=== PATIENT | male | born 1985 | race Two or more races ===

== ENCOUNTER 2020-06-02 12:04 | Inpatient (IN) | payer BC, OTHER ==
[~2020-06-02] VITALS: Ht 185.4 cm; Wt 136.0 kg
[2020-06-02] MEDS ORDERED: IBUPROFEN 600 MG TABLET ONE (12:42)
--- NOTE | 2020-06-02 12:56 | NUR ---
PT C/O BLE SWELLING AND DRAINAGE X2 DAYS. HX EXCEMA AND FLUID RETENTION. PT CONNECTED TO MONITORING. PIV PLACED, LABS AND 1 SET BLOOD CX COLLECTED AND SENT TO LAB WITH LAB SLIP. SENIOR SYSTEMS PROGRAMMER AT BEDSIDE FOR SECON SET BLOOD CX. IVF RUNNING, DIRECTOR WORKERS COMPENSATION PER APR. PT POSITIONED FOR COMFORT. CALL LIGHT IN REACH.
[2020-06-02] MEDS ORDERED: SODIUM CHLORIDE FLUSH 10ML SYR IVF ONE (13:00)
[2020-06-02] MEDS ORDERED: SODIUM CHLORIDE 0.9% 1,000ML IVBOLUS ONE ×2 (13:00→14:30)
[2020-06-02] MEDS ORDERED: IBUPROFEN 600 MG TABLET PO ONE (13:00)
[2020-06-02 13:08] LABS: BASOPHILS % (AUTO) 0 % (0-1); EOSINOPHILS % (AUTO) 3 % (1-7); LYMPHOCYTES % (AUTO) 7 % (22-44); MEAN CORPUSCULAR HEMOGLOBIN 29.3 pg (27.5-34.5); MEAN CORPUSCULAR HGB CONC 33.5 g/dL (33.2-36.2); MEAN PLATELET VOLUME 9.1 fL (7.4-10.4); MONOCYTES % (AUTO) 11 % (2-9); NEUTROPHILS % (AUTO) 79 % (42-75); PLATELET COUNT 244 x10^3/uL (130-400); RED BLOOD COUNT 4.93 x10^6/uL (4.38-5.82); RED CELL DISTRIBUTION WIDTH 13.7 % (9.4-14.8)
[2020-06-02 13:13] LABS: ALBUMIN 3.3 g/dL (3.4-5.0); ANION GAP 7 mmol/L (5-15); CALCIUM 8.7 mg/dL (8.5-10.1); CHLORIDE 100 mmol/L (98-107); CREATININE 1.32 mg/dL (0.7-1.3)
[2020-06-02 13:32] LABS: MD SCAN
[2020-06-02] MEDS ORDERED: PIPERACILLIN/TAZO/PMX 3.375GM 50 ML ONE (13:43)
[2020-06-02] MEDS ORDERED: LOSA100T14 PO (13:49)
[2020-06-02] MEDS ORDERED: FURO40TA6 PO (13:49)
[2020-06-02] MEDS ORDERED: CETI10TA76 PO (13:50)
--- NOTE | 2020-06-02 13:56 | NUR ---
PT RESTING COMFORTABLY ON [employer], PLAYING ON PHONE. NADN. PT APPEARS MORE RELAXED THAN WHEN ARRIVED. ALL RESULTS ARE BACK AT THIS TIME. CHART UP FOR RECHECK.
[2020-06-02] MEDS ORDERED: PIPERACILLIN/TAZO/PMX 3.375GM 50 ML IV ONE (14:00)
--- NOTE | 2020-06-02 14:53 | NUR ---
US HAS BEEN AT BEDSIDE. IVF RUNNING.
--- NOTE | 2020-06-02 15:21 | NUR ---
ERMD AT BEDSIDE TO UPDATE PT ON POC.
--- NOTE | 2020-06-02 15:29 | NUR ---
PT TO BE ADMIT
[2020-06-02] MEDS ORDERED: SODIUM CHLORIDE FLUSH 10ML SYR IVF PRN (16:00)
[2020-06-02] MEDS ORDERED: BACLOFEN 10 MG TABLET PO PRN (16:30)
[2020-06-02] MEDS ORDERED: GABAPENTIN 300 MG CAPSULE PO PRN (16:30)
[2020-06-02] MEDS ORDERED: BUTALB/APAP/CAFFEINE 50MG/325MG/40MG PO PRN ×2 (16:30)
[2020-06-02] MEDS ORDERED: LABETALOL 5MG/ML, 20ML IVPush PRN (16:30)
[2020-06-02] MEDS ORDERED: ACETAMINOPHEN 325 MG TABLET PO PRN (16:30)
[2020-06-02] MEDS ORDERED: VANCOMYCIN PER PHARMACY MC PRN (16:30)
[2020-06-02] MEDS ORDERED: ONDANSETRON ODT 4 MG PO PRN (16:30)
[2020-06-02] MEDS ORDERED: ENALAPRILAT 1.25 MG/ML, 2ML IVPush PRN (16:30)
[2020-06-02] MEDS ORDERED: GUAIFENESIN/DM 200-20MG, 10ML UDC PO PRN (16:30)
[2020-06-02] MEDS ORDERED: ONDANSETRON 2MG/ML, 2ML IVPush PRN (16:30)
--- NOTE | 2020-06-02 16:51 | NUR ---
REPORT GIVEN TO MARGI MENENDEZ. PT RTG TO ROOM 366
[2020-06-02] MEDS: AMPICILLIN/SULBACTAM 3 GM in SODIUM CHLORIDE 0.9% 100 ML IV SCH (18:19)
[2020-06-02] MEDS: ENOXAPARIN 40 MG/0.4 ML SQ SCH (18:20)
[2020-06-02 18:30] VITALS: BP 149/90
[2020-06-02] MEDS ORDERED: AMPICILLIN/SULBACTAM 3 GM in SODIUM CHLORIDE 0.9% 100 ML IV SCH (18:30)
[2020-06-02 18:49] VITALS: BP 129/82
[2020-06-02] MEDS ORDERED: VANCOMYCIN 2,500 MG in SODIUM CHLORIDE 0.9% 500 ML IV ONE (20:00)
[2020-06-02] MEDS ORDERED: PHARMACOKINETIC MONITORING MC PRN (20:00)
[2020-06-02] MEDS: MELATONIN 5 MG TABLET PO SCH (23:03)
[2020-06-02] MEDS: KETOROLAC 30 MG/1 ML IV PRN (23:03)
[2020-06-03 00:22] VITALS: BP 118/79
[2020-06-03] MEDS: AMPICILLIN/SULBACTAM 3 GM in SODIUM CHLORIDE 0.9% 100 ML IV SCH ×4 (01:15→20:27)
[2020-06-03 06:07] LABS: MEAN CORPUSCULAR HEMOGLOBIN 28.7 pg (27.5-34.5); MEAN CORPUSCULAR HGB CONC 32.5 g/dL (33.2-36.2); MEAN PLATELET VOLUME 9.3 fL (7.4-10.4); PLATELET COUNT 237 x10^3/uL (130-400); RED BLOOD COUNT 4.59 x10^6/uL (4.38-5.82)
[2020-06-03 06:12] LABS: ANION GAP 6 mmol/L (5-15); CHLORIDE 107 mmol/L (98-107)
[2020-06-03 06:13] LABS: CALCIUM 8.1 mg/dL (8.5-10.1); CREATININE 0.84 mg/dL (0.7-1.3)
[2020-06-03 06:43] LABS: MD YES
[2020-06-03 06:45] LABS: <RBC MORPHOLOGY> NORMAL; BAND#(MANUAL) 0.13 x10^3/uL; BANDS%(MANUAL) 1 % (0-7); BASOS#(MANUAL) 0.13 x10^3/uL (0-0.1); BASOS% (MANUAL) 1 % (0-1); EOS#(MANUAL) 1.88 x10^3/uL (0.0-0.4); EOS% (MANUAL) 15 % (1-7); LYMPH#(MANUAL) 1.13 x10^3/uL (1-3.4); LYMPHS% (MANUAL) 9 % (22-44); MONOS% (MANUAL) 8 % (2-9); SEG#(MANUAL) 8.25 x10^3/uL (1.8-6.8); SEGS% (MANUAL) 66 % (42-75)
[2020-06-03 06:46] LABS: <PLATELET ESTIMATE> ADEQUATE; <PLT MORPHOLOGY> NORMAL PLT MORPH; PMNS WITH VACUOLES 1+
[2020-06-03 07:06] VITALS: BP 127/71
[2020-06-03] MEDS: SENNA/DOCUSATE TABLET PO SCH (08:16)
[2020-06-03] MEDS: VANCOMYCIN 2,200 MG in SODIUM CHLORIDE 0.9% 500 ML IV SCH ×2 (10:00→22:34)
[2020-06-03 13:26] VITALS: BP 139/78
[2020-06-03] MEDS: FUROSEMIDE 40 MG/4 ML IV SCH (17:32)
[2020-06-03] MEDS: ENOXAPARIN 40 MG/0.4 ML SQ SCH (17:32)
[2020-06-03] MEDS: KETOROLAC 30 MG/1 ML IV PRN (17:55)
[2020-06-03 19:16] VITALS: BP 121/72
[2020-06-03] MEDS: MELATONIN 5 MG TABLET PO SCH (22:34)
[2020-06-04 00:31] VITALS: BP 142/90
[2020-06-04] MEDS: AMPICILLIN/SULBACTAM 3 GM in SODIUM CHLORIDE 0.9% 100 ML IV SCH ×4 (02:37→20:15)
[2020-06-04 05:54] LABS: BASOPHILS % (AUTO) 1 % (0-1); EOSINOPHILS % (AUTO) 32 % (1-7); LYMPHOCYTES % (AUTO) 13 % (22-44); MEAN CORPUSCULAR HGB CONC 33.2 g/dL (33.2-36.2); MEAN PLATELET VOLUME 8.6 fL (7.4-10.4); MONOCYTES % (AUTO) 10 % (2-9); NEUTROPHILS % (AUTO) 45 % (42-75); PLATELET COUNT 277 x10^3/uL (130-400); RED BLOOD COUNT 4.33 x10^6/uL (4.38-5.82); RED CELL DISTRIBUTION WIDTH 14.1 % (9.4-14.8)
[2020-06-04 06:08] LABS: ALBUMIN 2.4 g/dL (3.4-5.0); CHLORIDE 110 mmol/L (98-107)
[2020-06-04 06:11] LABS: ANION GAP 5 mmol/L (5-15); CALCIUM 8.2 mg/dL (8.5-10.1); CREATININE 0.92 mg/dL (0.7-1.3)
[2020-06-04 06:47] LABS: MD SCAN
[2020-06-04 07:00] VITALS: BP 150/95
[2020-06-04] MEDS: LOSARTAN 25MG TABLET PO SCH (08:19)
[2020-06-04] MEDS: SENNA/DOCUSATE TABLET PO SCH (08:19)
[2020-06-04] MEDS: FUROSEMIDE 40 MG/4 ML IV SCH ×2 (08:19→17:37)
[2020-06-04] MEDS: CETIRIZINE 10 MG TABLET PO SCH (08:19)
[2020-06-04] MEDS: KETOROLAC 30 MG/1 ML IV PRN (08:41)
[2020-06-04] MEDS: VANCOMYCIN 2,200 MG in SODIUM CHLORIDE 0.9% 500 ML IV SCH ×2 (11:17→22:40)
[2020-06-04 13:31] VITALS: BP 159/86
[2020-06-04] MEDS: ENOXAPARIN 40 MG/0.4 ML SQ SCH (17:37)
[2020-06-04] MEDS: MELATONIN 5 MG TABLET PO SCH (20:15)
[2020-06-04 20:40] VITALS: BP 112/69
[2020-06-05 01:24] VITALS: BP 127/74
[2020-06-05] MEDS: AMPICILLIN/SULBACTAM 3 GM in SODIUM CHLORIDE 0.9% 100 ML IV SCH ×4 (02:09→22:31)
[2020-06-05] MEDS: FUROSEMIDE 40 MG/4 ML IV SCH ×2 (07:43→18:52)
[2020-06-05] MEDS: CETIRIZINE 10 MG TABLET PO SCH (07:43)
[2020-06-05] MEDS: LOSARTAN 25MG TABLET PO SCH (07:44)
[2020-06-05] MEDS: SENNA/DOCUSATE TABLET PO SCH (07:44)
[2020-06-05 07:46] VITALS: BP 144/79
[2020-06-05] MEDS ORDERED: CYANOCOBALAMIN 1,000 MCG/ML, 1ML IM ONE (09:30)
[2020-06-05] MEDS: OMEGA-3/FISH OIL CAPSULE PO SCH ×2 (10:06→20:52)
[2020-06-05] MEDS: CHOLECALCIFEROL 5,000u TAB PO SCH (10:07)
[2020-06-05] MEDS: ZINC SULFATE 220 MG CAPSULE PO SCH (10:07)
[2020-06-05] MEDS: MULTIVITS,STRESS FORMULA 1 TABLET PO SCH (10:07)
[2020-06-05] MEDS: VANCOMYCIN 2,200 MG in SODIUM CHLORIDE 0.9% 500 ML IV SCH ×2 (10:39→23:02)
[2020-06-05] MEDS: KETOROLAC 30 MG/1 ML IV PRN (13:43)
[2020-06-05 15:45] VITALS: BP 135/74
[2020-06-05] MEDS: ENOXAPARIN 40 MG/0.4 ML SQ SCH (18:30)
[2020-06-05] MEDS: ASCORBIC ACID 500 MG TABLET PO SCH (18:52)
[2020-06-05 19:10] VITALS: BP 132/88
[2020-06-05] MEDS: MELATONIN 5 MG TABLET PO SCH (20:52)
[2020-06-06 03:35] VITALS: BP 156/80
[2020-06-06] MEDS: AMPICILLIN/SULBACTAM 3 GM in SODIUM CHLORIDE 0.9% 100 ML IV SCH ×2 (04:16→10:20)
[2020-06-06 08:11] VITALS: BP 129/81
[2020-06-06] MEDS: ASCORBIC ACID 500 MG TABLET PO SCH ×2 (08:31→17:54)
[2020-06-06] MEDS: FUROSEMIDE 40 MG/4 ML IV SCH ×2 (08:31→17:53)
[2020-06-06] MEDS: LOSARTAN 25MG TABLET PO SCH (08:32)
[2020-06-06] MEDS: MULTIVITS,STRESS FORMULA 1 TABLET PO SCH (08:32)
[2020-06-06] MEDS: SENNA/DOCUSATE TABLET PO SCH (08:32)
[2020-06-06] MEDS: OMEGA-3/FISH OIL CAPSULE PO SCH ×2 (08:32→20:24)
[2020-06-06] MEDS: CETIRIZINE 10 MG TABLET PO SCH (08:33)
[2020-06-06] MEDS: CHOLECALCIFEROL 5,000u TAB PO SCH (08:33)
[2020-06-06] MEDS: ZINC SULFATE 220 MG CAPSULE PO SCH (08:33)
[2020-06-06] MEDS: VANCOMYCIN 2,200 MG in SODIUM CHLORIDE 0.9% 500 ML IV SCH (12:23)
[2020-06-06 14:34] VITALS: BP 140/80
[2020-06-06] MEDS: AMOXICILLIN/CLAV 500-125MG TABLET PO SCH (17:03)
[2020-06-06] MEDS: ENOXAPARIN 40 MG/0.4 ML SQ SCH (17:54)
[2020-06-06 19:26] VITALS: BP 145/88
[2020-06-06] MEDS: MELATONIN 5 MG TABLET PO SCH (20:24)
[2020-06-07] MEDS: AMOXICILLIN/CLAV 500-125MG TABLET PO SCH ×2 (00:56→07:56)
[2020-06-07 01:10] VITALS: BP 139/91
[2020-06-07 07:29] VITALS: BP 153/93
[2020-06-07] MEDS: MULTIVITS,STRESS FORMULA 1 TABLET PO SCH (07:52)
[2020-06-07] MEDS: FUROSEMIDE 40 MG/4 ML IV SCH (07:52)
[2020-06-07] MEDS: OMEGA-3/FISH OIL CAPSULE PO SCH (07:52)
[2020-06-07] MEDS: CHOLECALCIFEROL 5,000u TAB PO SCH (07:52)
[2020-06-07] MEDS: ASCORBIC ACID 500 MG TABLET PO SCH (07:53)
[2020-06-07] MEDS: ZINC SULFATE 220 MG CAPSULE PO SCH (07:53)
[2020-06-07] MEDS: LOSARTAN 25MG TABLET PO SCH (07:53)
[2020-06-07] MEDS: CETIRIZINE 10 MG TABLET PO SCH (07:53)
[2020-06-07] MEDS: SENNA/DOCUSATE TABLET PO SCH (07:53)
[2020-06-07] MEDS ORDERED: OMEG1CAP6 PO (09:21)
[2020-06-07] MEDS ORDERED: MELA5TAB14 PO (09:21)
[2020-06-07] MEDS ORDERED: ZINC220C8 PO (09:21)
[2020-06-07] MEDS ORDERED: ASCO500T9 PO (09:21)
[2020-06-07] MEDS ORDERED: CHOL500045 PO (09:21)
[2020-06-07] MEDS ORDERED: AMOX-367 PO (09:21)
[2020-06-07 13:05] VITALS: BP 145/83
== END 2020-06-07 15:37 | disposition home or self-care (01) | DRG 871 ==
LOC: ED 13:07 → EDIP 16:00 → 3N 17:14
PROVIDERS: ADMIT Internal Medicine; ATTEND Family Medicine
DX: A41.9 Sepsis, unspecified organism (principal); N17.0 Acute kidney failure with tubular necrosis; L03.116 Cellulitis of left lower limb; L30.9 Dermatitis, unspecified; E66.9 Obesity, unspecified; I10 Essential (primary) hypertension; Z68.39 Body mass index [BMI] 39.0-39.9, adult
CPT/HCPCS: 36415; 71045; 80048; 80069; 80202; 82040; 83036; 83605; 83735; 84145; 85025; 87040; 87077; 87147; 87181; 87186; 93005; 96361; 96374; G0378; J0295; J1650; J1885; J1940; J2543; J3370; J3420; J7030; J7040

== ENCOUNTER 2020-06-21 16:34 | Emergency (ER) | payer OTHER ==
[~2020-06-21] VITALS: Ht 185.4 cm; Wt 126.7 kg
[~2020-06-21 16:34] MED LIST: AMOX-367 PO; ASCO500T9 PO; CETI10TA76 PO; CHOL500045 PO; FURO40TA6 PO; LOSA100T14 PO; MELA5TAB14 PO; OMEG1CAP6 PO; ZINC220C8 PO
--- NOTE | 2020-06-21 16:59 | NUR ---
ASSUMED CARE OF PT. HE REPORTS HE NOTICED NEW BUMPS AND THINKING HE MAY HAVE ALLERGY TO SOMETHING. HE SEES BUMBS ON BACK OF HIS HEAD, LEGS. HE ALSO HAS INCREASED SWELLING IN WHICH HE IS HAVING TIGHTNESS IN HIS LEGS ESPECIALLY RIGHT THIGH.
[2020-06-21 18:03] LABS: BASOPHILS % (AUTO) 1 % (0-1); EOSINOPHILS % (AUTO) 35 % (1-7); LYMPHOCYTES % (AUTO) 14 % (22-44); MEAN CORPUSCULAR HGB CONC 33.1 g/dL (33.2-36.2); MEAN PLATELET VOLUME 8.2 fL (7.4-10.4); MONOCYTES % (AUTO) 9 % (2-9); NEUTROPHILS % (AUTO) 42 % (42-75); PLATELET COUNT 322 x10^3/uL (130-400); RED BLOOD COUNT 4.87 x10^6/uL (4.38-5.82); RED CELL DISTRIBUTION WIDTH 14.3 % (9.4-14.8)
[2020-06-21 18:14] LABS: ANION GAP 6 mmol/L (5-15); CALCIUM 8.8 mg/dL (8.5-10.1); CHLORIDE 105 mmol/L (98-107); CREATININE 0.97 mg/dL (0.7-1.3)
[2020-06-21 18:35] LABS: MD SCAN
--- NOTE | 2020-06-21 18:57 | NUR ---
SBAR REPORT GIVEN.
--- NOTE | 2020-06-21 18:58 | NUR ---
REPORT RECIEVED FROM GEMMA ARANGO. PT RESTING IN [facility], AWAITING LABS
[2020-06-21 19:05] VITALS: BP 111/78
[2020-06-21] MEDS ORDERED: ACETAMINOPHEN 500 MG TABLET ONE (19:22)
[2020-06-21] MEDS ORDERED: ACETAMINOPHEN 500 MG TABLET PO ONE (19:30)
[2020-06-21] MEDS ORDERED: TRIAMCINOLONE ACETONIDE 40 MG/ML, 1ML IM ONE (19:30)
--- NOTE | 2020-06-21 19:50 | NUR ---
PT MEDICATED PER EMAR, ERP SPOKE WITH PT ABOUT DISCHARGE, PT AGREEABLE. WATCHING PT FOR REACTION TO MEDICATION AND WILL DISCHARGE
== END 2020-06-21 20:30 | disposition home or self-care (01) ==
LOC: ED 18:06
DX: L20.84 Intrinsic (allergic) eczema (principal); I10 Essential (primary) hypertension; M79.651 Pain in right thigh
CPT/HCPCS: 36415; 80048; 85025; 96372; 99283; J3301